=== PATIENT | female | born 1970 | race Caucasian/White ===

== ENCOUNTER 2022-05-22 06:00 | Day surgery (SDC) | payer BC, OTHER ==
[2022-05-22] MEDS ORDERED: Propofol 200 MG/20 ML SDV ONE ×2 (09:33→11:29)
[2022-05-22] MEDS ORDERED: Lidocaine 2% 5 ML SDV ONE (09:33)
[2022-05-22] MEDS ORDERED: fentaNYL 100 MCG/2 ML SDV ONE (09:33)
[2022-05-22] MEDS ORDERED: Lactated Ringers 1,000 ML IV ONE (11:15)
== END 2022-05-22 12:29 ==
LOC: MW.SDS 06:00
PROVIDERS: ATTEND Surgery
DX: Z12.11 Encounter for screening for malignant neoplasm of colon (principal); K57.30 Diverticulosis of large intestine without perforation or abscess without bleeding; K21.9 Gastro-esophageal reflux disease without esophagitis; Z79.899 Other long term (current) drug therapy; Z91.040 Latex allergy status; Z98.890 Other specified postprocedural states; Z96.652 Presence of left artificial knee joint
CPT/HCPCS: 45378; J2704; J3010; J7120; 00812